=== PATIENT | male | born 1995 | race Caucasian/White ===

== ENCOUNTER → 2017-11-24 | Outpatient (CLI) | payer BC | END | disposition home or self-care (01) | LOC: RAD 11-17 09:00 → EDSTATUS 10:00 → RAD 10:00 | PROC: 0H9NXZX Drainage of Left Foot Skin, External Approach, Diagnostic (ICD-10-PCS; principal; 2017-11-24) | DX: R22.42 Localized swelling, mass and lump, left lower limb (principal); M61.472 Other calcification of muscle, left ankle and foot; W45.8XXS Other foreign body or object entering through skin, sequela | CPT/HCPCS: 75989; 87070; 87075; 87205 ==